=== PATIENT | male | born 1980 | race Two or more races ===

== ENCOUNTER 2018-05-14 17:55 | Inpatient (IN) | payer BC, MEDICAID, OTHER ==
[~2018-05-14] VITALS: Ht 172.7 cm; Wt 108.2 kg
[~2018-05-14 17:55] MED LIST: DOCU-131 PO; HYDR-3240 PO; OXYC-302 PO; PHEN100T90 PO; SULF1TAB24 PO; TAMS-11 PO
[2018-05-14 18:24] LABS: BASOPHILS # (AUTO) 0.03 x10^3/uL (0-0.1); BASOPHILS % (AUTO) 0 % (0-1); EOSINOPHILS # (AUTO) 0.05 x10^3/uL (0-0.4); EOSINOPHILS % (AUTO) 1 % (1-7); LYMPHOCYTES # (AUTO) 1.89 x10^3/uL (1-3.4); LYMPHOCYTES % (AUTO) 21 % (22-44); MD NO; MEAN CORPUSCULAR HEMOGLOBIN 30.1 pg (27.5-34.5); MEAN CORPUSCULAR HGB CONC 33.9 g/dL (33.2-36.2); MEAN CORPUSCULAR VOLUME 88.9 fL (81-97); MEAN PLATELET VOLUME 7.5 fL (7.4-10.4); MONOCYTES # (AUTO) 0.44 x10^3/uL (0.2-0.8); MONOCYTES % (AUTO) 5 % (2-9); NEUTROPHILS # (AUTO) 6.56 x10^3/uL (1.8-6.8); NEUTROPHILS % (AUTO) 73 % (42-75); PLATELET COUNT 337 x10^3/uL (130-400); RED BLOOD COUNT 5.69 x10^6/uL (4.38-5.82); RED CELL DISTRIBUTION WIDTH 13.4 % (9.4-14.8)
[2018-05-14 18:33] LABS: ALBUMIN 3.8 g/dL (3.4-5.0); ANION GAP 5 mmol/L (5-15); CALCIUM 8.9 mg/dL (8.5-10.1); CHLORIDE 109 mmol/L (98-107); CREATININE 1.35 mg/dL (0.7-1.3)
[2018-05-14] MEDS ORDERED: ONDANSETRON 2MG/ML, 2ML IVPush ONE (19:00)
[2018-05-14] MEDS ORDERED: KETOROLAC 30 MG/1 ML IVPush ONE (19:00)
[2018-05-14] MEDS ORDERED: SODIUM CHLORIDE FLUSH 10ML SYR IVF ONE (19:00)
--- NOTE | 2018-05-14 19:00 | NUR ---
ASSUMED CARE OF PT. PT HERE WITH C/O SUPRAPUBIC/GROIN PAIN X 2 DAYS. STATES HX OF KIDNEY STONES AND STATES THIS FEELS SIMILAR. PT DENIES HEMATURIA. DOES STATE PAINFUL URINATION. IV STARTED. POC DISCUSSED. WILL CONTINUE TO MONITOR.
[2018-05-14] MEDS ORDERED: ONDANSETRON 2MG/ML, 2ML ONE (19:03)
[2018-05-14] MEDS ORDERED: MORPHINE SULFATE 4 MG/ML, 1ML ONE ×2 (19:03→19:58)
[2018-05-14] MEDS ORDERED: KETOROLAC 30 MG/1 ML ONE (19:03)
[2018-05-14] MEDS: MORPHINE SULFATE 4 MG/ML, 1ML IVPush PRN ×2 (19:07→20:01)
--- NOTE | 2018-05-14 19:07 | NUR ---
PT MEDICATED PER MAY. RIGHTS VERIFIED PRIOR. 3P'S ADDRESSED. PT TO CT VIA W/C.
--- NOTE | 2018-05-14 20:12 | NUR ---
ANDERSON PLACED PER MAR. STERILE TECHNIQUE USED. ROUGHLY 200ML OF YELLOW SEDAMENT URINE OUT. POC UPDATED WITH PT. PT AGREEABLE. PT ALSO MEDICATED FOR INCREASED PAIN. 5 RIGTHS VERIFEID PRIOR. 3 P'S ADDRESSED.
[2018-05-14 20:35] LABS: CULTURE INDICATED? YES; MICROSCOPIC INDICATED
--- NOTE | 2018-05-14 20:54 | NUR ---
REPORT TO JENNIFER DAVIS.
[2018-05-14] MEDS ORDERED: CEFTRIAXONE PMX 1GM/50ML 50 ML IV ONE (21:00)
[2018-05-14] MEDS ORDERED: CEFTRIAXONE PMX 1GM/50ML 50 ML ONE (21:26)
--- NOTE | 2018-05-14 21:42 | NUR ---
report given to charley lee
[2018-05-14] MEDS ORDERED: BISACODYL 10 MG SUPP PR PRN (22:00)
[2018-05-14] MEDS ORDERED: ONDANSETRON 2MG/ML, 2ML IVPush PRN (22:00)
[2018-05-14] MEDS ORDERED: ACETAMINOPHEN 325 MG TABLET PO PRN (22:00)
[2018-05-14] MEDS: SODIUM CHLORIDE 0.9% 1,000 ML IV SCH (22:45)
[2018-05-14] MEDS: TAMSULOSIN 0.4 MG CAP.ER.24H PO SCH (22:47)
[2018-05-14 23:29] VITALS: BP 105/82
[2018-05-14] MEDS: morphine SULFATE 10 MG/ML, 1ML IVPush PRN (23:56)
[2018-05-15 02:52] VITALS: BP 107/72
[2018-05-15] MEDS: morphine SULFATE 10 MG/ML, 1ML IVPush PRN ×5 (04:46→20:32)
[2018-05-15 05:07] LABS: BASOPHILS # (AUTO) 0.04 x10^3/uL (0-0.1); BASOPHILS % (AUTO) 0 % (0-1); EOSINOPHILS # (AUTO) 0.08 x10^3/uL (0-0.4); EOSINOPHILS % (AUTO) 1 % (1-7); LYMPHOCYTES # (AUTO) 2.35 x10^3/uL (1-3.4); LYMPHOCYTES % (AUTO) 26 % (22-44); MD NO; MEAN CORPUSCULAR HEMOGLOBIN 30.4 pg (27.5-34.5); MEAN CORPUSCULAR HGB CONC 34.5 g/dL (33.2-36.2); MEAN CORPUSCULAR VOLUME 88.1 fL (81-97); MEAN PLATELET VOLUME 7.5 fL (7.4-10.4); MONOCYTES # (AUTO) 0.65 x10^3/uL (0.2-0.8); MONOCYTES % (AUTO) 7 % (2-9); NEUTROPHILS # (AUTO) 5.96 x10^3/uL (1.8-6.8); NEUTROPHILS % (AUTO) 66 % (42-75); PLATELET COUNT 268 x10^3/uL (130-400); RED BLOOD COUNT 5.04 x10^6/uL (4.38-5.82); RED CELL DISTRIBUTION WIDTH 13.3 % (9.4-14.8)
[2018-05-15 05:17] LABS: ALBUMIN 3.1 g/dL (3.4-5.0); ANION GAP 7 mmol/L (5-15); CALCIUM 8.1 mg/dL (8.5-10.1); CHLORIDE 116 mmol/L (98-107)
[2018-05-15 05:20] LABS: ALANINE AMINOTRANSFERASE 32 U/L (12-78); ALKALINE PHOSPHATASE 99 U/L (45-117); BILIRUBIN,TOTAL 0.5 mg/dL (0.2-1.0); CREATININE 1.17 mg/dL (0.7-1.3); TOTAL PROTEIN 6.8 g/dL (6.4-8.2)
[2018-05-15] MEDS: SODIUM CHLORIDE 0.9% 1,000 ML IV SCH ×3 (06:21→22:34)
[2018-05-15 07:34] VITALS: BP 100/64
[2018-05-15] MEDS: CEFTRIAXONE PMX 1GM/50ML 50 ML IV SCH (10:09)
[2018-05-15] MEDS ORDERED: LIDOCAINE-MPF 1%, 5ML ONE (11:31)
[2018-05-15] MEDS ORDERED: FLUMAZENIL 0.1 MG/1 ML, 5ML ONE (11:39)
[2018-05-15] MEDS ORDERED: NALOXONE 1 MG/ML, 2ML ONE (11:39)
[2018-05-15] MEDS ORDERED: MIDAZOLAM 1 MG/ML, 5ML ONE (11:39)
[2018-05-15] MEDS ORDERED: FENTANYL PF 100 MCG/2ML ONE (11:39)
[2018-05-15] MEDS ORDERED: VISIPAQUE 270 MG/ML, 50ML BOTTLE ONE (12:11)
[2018-05-15 12:44] VITALS: BP 110/77
[2018-05-15 19:52] VITALS: BP 127/89
[2018-05-15] MEDS: TAMSULOSIN 0.4 MG CAP.ER.24H PO SCH (20:32)
[2018-05-16 00:34] VITALS: BP 116/73
[2018-05-16] MEDS: morphine SULFATE 10 MG/ML, 1ML IVPush PRN ×2 (03:41→07:37)
[2018-05-16 03:47] VITALS: BP 120/81
[2018-05-16 05:50] LABS: ANION GAP 6 mmol/L (5-15); CALCIUM 7.6 mg/dL (8.5-10.1); CHLORIDE 114 mmol/L (98-107)
[2018-05-16] MEDS: SODIUM CHLORIDE 0.9% 1,000 ML IV SCH ×3 (06:32→22:30)
[2018-05-16 07:48] VITALS: BP 106/78
[2018-05-16 07:56] VITALS: BP 118/76
[2018-05-16 08:50] LABS: BASOPHILS # (AUTO) 0.02 x10^3/uL (0-0.1); BASOPHILS % (AUTO) 0 % (0-1); EOSINOPHILS % (AUTO) 2 % (1-7); LYMPHOCYTES # (AUTO) 1.71 x10^3/uL (1-3.4); LYMPHOCYTES % (AUTO) 27 % (22-44); MD NO; MEAN CORPUSCULAR HEMOGLOBIN 29.7 pg (27.5-34.5); MEAN CORPUSCULAR HGB CONC 33.5 g/dL (33.2-36.2); MEAN CORPUSCULAR VOLUME 88.8 fL (81-97); MEAN PLATELET VOLUME 7.6 fL (7.4-10.4); MONOCYTES # (AUTO) 0.47 x10^3/uL (0.2-0.8); MONOCYTES % (AUTO) 7 % (2-9); NEUTROPHILS # (AUTO) 4.17 x10^3/uL (1.8-6.8); NEUTROPHILS % (AUTO) 64 % (42-75); PLATELET COUNT 233 x10^3/uL (130-400); RED BLOOD COUNT 4.63 x10^6/uL (4.38-5.82); RED CELL DISTRIBUTION WIDTH 13.5 % (9.4-14.8)
[2018-05-16] MEDS: HYDROcodone/APAP 5/325 TABLET PO PRN ×3 (09:15→20:29)
[2018-05-16] MEDS: CEFTRIAXONE PMX 1GM/50ML 50 ML IV SCH (09:15)
[2018-05-16] MEDS ORDERED: KETO10TA PO (12:22)
[2018-05-16] MEDS ORDERED: CEFD300C37 PO ×2 (12:22)
[2018-05-16 12:30] VITALS: BP 115/84
[2018-05-16] MEDS: TAMSULOSIN 0.4 MG CAP.ER.24H PO SCH (20:29)
[2018-05-16 20:48] VITALS: BP 113/82
[2018-05-17 02:19] VITALS: BP 112/83
[2018-05-17] MEDS: HYDROcodone/APAP 5/325 TABLET PO PRN ×3 (02:35→11:41)
[2018-05-17 07:39] VITALS: BP 139/88
[2018-05-17] MEDS ORDERED: CEFD300C37 PO (07:39)
[2018-05-17] MEDS: SODIUM CHLORIDE 0.9% 1,000 ML IV SCH (09:00)
[2018-05-17] MEDS: CEFTRIAXONE PMX 1GM/50ML 50 ML IV SCH (09:12)
[2018-05-17 14:20] VITALS: BP 125/90
== END 2018-05-17 16:00 | disposition home or self-care (01) | DRG 690 ==
LOC: ED 19:41 → 4NOR 21:14 → ED 22:20 → DCLOUNGE 05-17 15:47 → 4WST 05-17 16:26 → DCLOUNGE 05-17 16:26
PROVIDERS: ADMIT Internal Medicine; ATTEND Internal Medicine
PROC: 0T943ZZ Drainage of Left Kidney Pelvis, Percutaneous Approach (ICD-10-PCS; principal; 2018-05-15)
PROC: BT121ZZ Fluoroscopy of Left Kidney using Low Osmolar Contrast (ICD-10-PCS; 2018-05-15)
DX: N13.6 Pyonephrosis (principal); N17.9 Acute kidney failure, unspecified; Z88.0 Allergy status to penicillin; R00.0 Tachycardia, unspecified
CPT/HCPCS: 36415; 50432; 74176; 80048; 80053; 81001; 82040; 85025; 87086; 96374; 96375; 96376; 99156; 99157; C1894; G0378; J0696; J1885; J2250; J2405; J3010; Q9966; C1729; C1769; J2270; J2310; J7030

== ENCOUNTER 2018-05-22 16:26 | Emergency (ER) | payer OTHER ==
[~2018-05-22] VITALS: Ht 177.8 cm; Wt 106.9 kg
[~2018-05-22 16:26] MED LIST changes: +CEFD300C37 PO; +KETO10TA PO
[2018-05-22] MEDS ORDERED: LIDOCAINE 2%,20 ML JEL.PF.APP MM ONE (17:15)
--- NOTE | 2018-05-22 17:47 | NUR ---
ANDERSON CATHETER REPLACED ORDERED FOR URINARY RETENTION. HOWEVER, UPON PLACEMENT VERY LITTLE URINE OUPUT NOTED AND URINE LEAKING AROUND CATHETER. JOHN WINSTON AND DR. STALLWORTH NOTIFIED. CT SCAN ORDERED TO CHECK ANDERSON PLACEMENT.
[2018-05-22 17:59] LABS: BASOPHILS # (AUTO) 0.03 x10^3/uL (0-0.1); BASOPHILS % (AUTO) 0 % (0-1); EOSINOPHILS # (AUTO) 0.09 x10^3/uL (0-0.4); EOSINOPHILS % (AUTO) 1 % (1-7); LYMPHOCYTES # (AUTO) 1.45 x10^3/uL (1-3.4); LYMPHOCYTES % (AUTO) 17 % (22-44); MD NO; MEAN CORPUSCULAR HEMOGLOBIN 30.3 pg (27.5-34.5); MEAN CORPUSCULAR HGB CONC 34.1 g/dL (33.2-36.2); MEAN CORPUSCULAR VOLUME 88.9 fL (81-97); MEAN PLATELET VOLUME 7.3 fL (7.4-10.4); MONOCYTES # (AUTO) 0.59 x10^3/uL (0.2-0.8); MONOCYTES % (AUTO) 7 % (2-9); NEUTROPHILS # (AUTO) 6.41 x10^3/uL (1.8-6.8); NEUTROPHILS % (AUTO) 75 % (42-75); PLATELET COUNT 298 x10^3/uL (130-400); RED BLOOD COUNT 5.11 x10^6/uL (4.38-5.82); RED CELL DISTRIBUTION WIDTH 13.2 % (9.4-14.8)
[2018-05-22 18:05] LABS: ALANINE AMINOTRANSFERASE 47 U/L (12-78); ALBUMIN 3.5 g/dL (3.4-5.0); ANION GAP 3 mmol/L (5-15); CALCIUM 8.6 mg/dL (8.5-10.1); CHLORIDE 111 mmol/L (98-107)
[2018-05-22 18:08] LABS: ALKALINE PHOSPHATASE 90 U/L (45-117); BILIRUBIN,TOTAL 0.4 mg/dL (0.2-1.0); CREATININE 1.11 mg/dL (0.7-1.3); TOTAL PROTEIN 7.6 g/dL (6.4-8.2)
[2018-05-22] MEDS ORDERED: KETOROLAC 30 MG/1 ML ONE (18:43)
[2018-05-22] MEDS ORDERED: OXYcodone/APAP 5/325MG TABLET ONE (18:44)
[2018-05-22] MEDS ORDERED: OXYcodone/APAP 5/325MG TABLET PO ONE (19:00)
[2018-05-22] MEDS ORDERED: KETOROLAC 30 MG/1 ML IM ONE (19:00)
--- NOTE | 2018-05-22 19:06 | NUR ---
RECEIVED BS REPORT FROM TEDDY RN'S TO ASSUME PT. CARE. CONTINUOUS PULSE OX AND B/P MONITORS PLACED. NO URINE OUTPUT NOTED FROM ANDERSON; WILL CONTINUE MONITORING FOR UA. PT. REPORTS PAIN IS ONLY SLIGHTLY BETTER TO PELVIC AREA. FAMILY AT BS FOR SUPPORT. CALL LIGHT IN REACH.
--- NOTE | 2018-05-22 19:21 | NUR ---
PT. CHART UP FOR RECHECK BY ERMD; STILL NO URINE OUTPUT FOR UA.
--- NOTE | 2018-05-22 19:32 | NUR ---
ABOUT 50CC OF BLOODY URINE COLLECTED FROM ANDERSON COLLECTION BAG AND WALKED TO LAB. DR. STALLWORTH AWAITING UROLOGY CONSULT. PT. DENIES NEEDS.
[2018-05-22 19:57] LABS: CULTURE INDICATED? YES; MICROSCOPIC INDICATED
--- NOTE | 2018-05-22 20:31 | NUR ---
PT. RESTING ON GURNEY WITH NADN. CHART UP FOR RECHECK; ERMD STILL AWAITING URO CALL. PT. DENIES NEEDS AT THIS TIME. CALL LIGHT REMAINS IN REACH. FAMILY AT BS. VS UPDATED.
[2018-05-22 20:38] VITALS: BP 123/86
[2018-05-22] MEDS ORDERED: CEFDINIR 300 MG CAPSULE PO STA (20:45)
[2018-05-22] MEDS ORDERED: CEFDINIR 300 MG CAPSULE ONE (20:51)
[2018-05-22] MEDS ORDERED: CEFDINIR 300 MG CAPSULE PO ONE (21:00)
== END 2018-05-22 20:55 | disposition home or self-care (01) ==
LOC: ED 19:52
DX: N20.0 Calculus of kidney (principal); N39.0 Urinary tract infection, site not specified; R31.9 Hematuria, unspecified
CPT/HCPCS: 36415; 51702; 74176; 80053; 81001; 85025; 87086; 96372; 99284; J1885

== ENCOUNTER 2018-06-14 13:00 | Outpatient (CLI) | payer MEDICAID, OTHER | END 2018-06-14 23:59 | disposition home or self-care (01) | LOC: STAR 13:00 | PROVIDERS: ATTEND Urology | DX: Z02.9 Encounter for administrative examinations, unspecified (principal) ==

== ENCOUNTER 2018-06-22 06:59 | Inpatient (IN) | payer MEDICAID, OTHER ==
[2018-06-14 13:51] VITALS: BP 134/90
[~2018-06-22] VITALS: Ht 180.3 cm; Wt 106.8 kg
[2018-06-22] MEDS ORDERED: LACTATED RINGERS 1,000 ML IV SCH (07:31)
[2018-06-22] MEDS ORDERED: FENTANYL PF 250 MCG/5ML ONE ×2 (09:11→10:49)
[2018-06-22] MEDS ORDERED: MIDAZOLAM 1 MG/ML, 2ML ONE (09:11)
[2018-06-22] MEDS ORDERED: OMNIPAQUE 350 MG/ML, 50 ML BOTTLE ONE (09:45)
[2018-06-22] MEDS ORDERED: CIPROFLOXACIN/PMX 400MG/200ML 200 ML ONE (09:49)
[2018-06-22] MEDS ORDERED: CEFTRIAXONE 1,000 MG ONE (09:56)
[2018-06-22] MEDS ORDERED: LEVOFLOXACIN/PMX 500MG/100ML 100 ML ONE (10:01)
[2018-06-22] MEDS ORDERED: PROMETHAZINE 25 MG/ML, 1ML IV PRN (14:00)
[2018-06-22] MEDS ORDERED: MEPERIDINE/PF 25MG/0.5ML IVPush PRN (14:00)
[2018-06-22] MEDS ORDERED: KETOROLAC 30 MG/1 ML IV PRN (14:00)
[2018-06-22] MEDS ORDERED: hydrALAzine 20 MG/ML, 1ML IV PRN (14:00)
[2018-06-22] MEDS ORDERED: FENTANYL PF 100 MCG/2ML IV PRN (14:00)
[2018-06-22] MEDS ORDERED: OXYcodone 5 MG/5 ML ORAL.SOL UDC PO PRN (14:00)
[2018-06-22] MEDS ORDERED: LABETALOL 5MG/ML, 20ML IV PRN (14:00)
[2018-06-22] MEDS ORDERED: ACETAMINOPHEN 325 MG TABLET PO PRN (14:00)
[2018-06-22] MEDS ORDERED: DIAZEPAM 5 MG/ML, 2ML IVPush PRN (14:00)
[2018-06-22] MEDS ORDERED: ALBUTEROL SULFATE 2.5 MG/3 ML NPPB PRN (14:00)
[2018-06-22] MEDS: HYDROmorphone 2 MG/ML, 1ML IVPush PRN ×5 (14:02→14:39)
[2018-06-22] MEDS ORDERED: HYDROmorphone 2 MG/ML, 1ML ONE (14:02)
[2018-06-22] MEDS ORDERED: ACETAMINOPHEN 650 MG/20.3 ML UDC ONE (14:17)
[2018-06-22] MEDS ORDERED: OXYcodone 5 MG/5 ML ORAL.SOL UDC ONE (14:18)
[2018-06-22] MEDS ORDERED: PROPOFOL 10 MG/ML, 20ML ONE (14:45)
[2018-06-22] MEDS ORDERED: METOPROLOL 1 MG/ML, 5ML ONE (14:45)
[2018-06-22] MEDS ORDERED: ROCURONIUM 10MG/ML,5ML ONE (14:45)
[2018-06-22] MEDS ORDERED: ONDANSETRON 2MG/ML, 2ML ONE (14:45)
[2018-06-22] MEDS ORDERED: DEXAMETHASONE 4 MG/ML, 1ML ONE (14:45)
[2018-06-22 15:30] VITALS: BP 113/75
[2018-06-22] MEDS ORDERED: GENTAMICIN IV ONE (16:00)
[2018-06-22] MEDS ORDERED: SODIUM CHLORIDE 0.9% IV ONE (16:00)
[2018-06-22] MEDS ORDERED: OXYcodone/APAP 5/325MG TABLET PO PRN (16:00)
[2018-06-22] MEDS: LACTATED RINGERS 1,000 ML IV SCH ×2 (16:24→23:51)
[2018-06-22] MEDS: ACETAMINOPHEN 500 MG TABLET PO SCH ×2 (16:24→21:50)
[2018-06-22] MEDS: morphine SULFATE 10 MG/ML, 1ML IV PRN (19:10)
[2018-06-22 19:14] VITALS: BP 117/77
[2018-06-22] MEDS: TAMSULOSIN 0.4 MG CAP.ER.24H PO SCH (20:05)
[2018-06-22] MEDS: OXYcodone/APAP 5/325MG TABLET PO PRN ×2 (20:05→23:51)
[2018-06-23 00:53] VITALS: BP 112/69
[2018-06-23] MEDS: morphine SULFATE 10 MG/ML, 1ML IV PRN ×2 (01:02→01:42)
[2018-06-23] MEDS: OXYcodone/APAP 5/325MG TABLET PO PRN ×3 (03:59→21:22)
[2018-06-23] MEDS: ACETAMINOPHEN 500 MG TABLET PO SCH ×4 (04:00→21:22)
[2018-06-23 08:29] LABS: BASOPHILS # (AUTO) 0.01 x10^3/uL (0-0.1); BASOPHILS % (AUTO) 0 % (0-1); EOSINOPHILS % (AUTO) 0 % (1-7); LYMPHOCYTES # (AUTO) 0.56 x10^3/uL (1-3.4); LYMPHOCYTES % (AUTO) 6 % (22-44); MD NO; MEAN CORPUSCULAR HEMOGLOBIN 29.4 pg (27.5-34.5); MEAN CORPUSCULAR HGB CONC 33.9 g/dL (33.2-36.2); MEAN CORPUSCULAR VOLUME 86.9 fL (81-97); MEAN PLATELET VOLUME 6.7 fL (7.4-10.4); MONOCYTES # (AUTO) 0.26 x10^3/uL (0.2-0.8); MONOCYTES % (AUTO) 3 % (2-9); NEUTROPHILS # (AUTO) 8.25 x10^3/uL (1.8-6.8); NEUTROPHILS % (AUTO) 91 % (42-75); PLATELET COUNT 237 x10^3/uL (130-400); RED BLOOD COUNT 4.36 x10^6/uL (4.38-5.82); RED CELL DISTRIBUTION WIDTH 13.4 % (9.4-14.8)
[2018-06-23 08:38] LABS: ANION GAP 5 mmol/L (5-15); CALCIUM 7.9 mg/dL (8.5-10.1); CHLORIDE 110 mmol/L (98-107); CREATININE 1.19 mg/dL (0.7-1.3)
[2018-06-23 08:57] VITALS: BP 108/65
[2018-06-23] MEDS: LEVOFLOXACIN 500 MG TABLET PO SCH (12:03)
[2018-06-23] MEDS: LACTATED RINGERS 1,000 ML IV SCH (12:09)
[2018-06-23 13:12] VITALS: BP 93/54
[2018-06-23] MEDS ORDERED: OPIUM/BELLADONNA SUPP.RECT 16.2-30 MG PR PRN (18:00)
[2018-06-23 19:25] VITALS: BP 130/83
[2018-06-23] MEDS: TAMSULOSIN 0.4 MG CAP.ER.24H PO SCH (21:22)
[2018-06-23 22:35] VITALS: BP 119/69
[2018-06-24 00:22] VITALS: BP 118/73
[2018-06-24] MEDS ORDERED: ACETAMINOPHEN 500 MG TABLET PO ONE (01:00)
[2018-06-24] MEDS ORDERED: CEFTRIAXONE PMX 2GM/50ML 50 ML IV SCH (01:00)
[2018-06-24] MEDS ORDERED: ACETAMINOPHEN 325 MG TABLET PO PRN (01:05)
[2018-06-24 01:33] LABS: BASOPHILS # (AUTO) 0.01 x10^3/uL (0-0.1); BASOPHILS % (AUTO) 0 % (0-1); EOSINOPHILS % (AUTO) 0 % (1-7); LYMPHOCYTES # (AUTO) 0.73 x10^3/uL (1-3.4); LYMPHOCYTES % (AUTO) 11 % (22-44); MD NO; MEAN CORPUSCULAR HEMOGLOBIN 29.9 pg (27.5-34.5); MEAN CORPUSCULAR HGB CONC 34.2 g/dL (33.2-36.2); MEAN CORPUSCULAR VOLUME 87.3 fL (81-97); MONOCYTES # (AUTO) 0.47 x10^3/uL (0.2-0.8); MONOCYTES % (AUTO) 7 % (2-9); NEUTROPHILS # (AUTO) 5.37 x10^3/uL (1.8-6.8); NEUTROPHILS % (AUTO) 82 % (42-75); PLATELET COUNT 201 x10^3/uL (130-400); RED BLOOD COUNT 4.39 x10^6/uL (4.38-5.82); RED CELL DISTRIBUTION WIDTH 13.4 % (9.4-14.8)
[2018-06-24 01:38] LABS: ANION GAP 7 mmol/L (5-15); CALCIUM 7.8 mg/dL (8.5-10.1); CHLORIDE 107 mmol/L (98-107)
[2018-06-24 02:22] VITALS: BP 112/69
[2018-06-24] MEDS: ACETAMINOPHEN 500 MG TABLET PO SCH ×2 (03:00→12:14)
[2018-06-24] MEDS: morphine SULFATE 10 MG/ML, 1ML IV PRN (04:14)
[2018-06-24 06:55] VITALS: BP 121/80
[2018-06-24] MEDS: LEVOFLOXACIN 500 MG TABLET PO SCH (08:22)
[2018-06-24] MEDS: OXYcodone IR 5MG TABLET PO PRN ×3 (08:28→20:17)
[2018-06-24] MEDS: CEPHALEXIN 500 MG CAPSULE PO SCH ×2 (12:13→20:17)
[2018-06-24 13:19] VITALS: BP 118/80
[2018-06-24 18:45] VITALS: BP 118/80
[2018-06-24] MEDS: TAMSULOSIN 0.4 MG CAP.ER.24H PO SCH (20:21)
[2018-06-25] MEDS: OXYcodone IR 5MG TABLET PO PRN ×4 (01:13→20:34)
[2018-06-25 01:20] VITALS: BP 121/84
[2018-06-25] MEDS ORDERED: ACETAMINOPHEN 325 MG TABLET PO PRN (01:50)
[2018-06-25 02:05] LABS: CLOSTRIDIUM DIFFICILE ANTIGEN NEGATIVE; CLOSTRIDIUM DIFFICILE TOXIN NEGATIVE (Negative)
[2018-06-25 06:55] VITALS: BP 130/85
[2018-06-25] MEDS: LEVOFLOXACIN 500 MG TABLET PO SCH (08:04)
[2018-06-25] MEDS: CEPHALEXIN 500 MG CAPSULE PO SCH ×2 (08:04→20:34)
[2018-06-25 12:22] VITALS: BP 117/85
[2018-06-25 18:38] VITALS: BP 134/90
[2018-06-25] MEDS: TAMSULOSIN 0.4 MG CAP.ER.24H PO SCH (20:34)
[2018-06-26 02:02] VITALS: BP 123/87
[2018-06-26] MEDS: OXYcodone IR 5MG TABLET PO PRN ×2 (02:44→08:22)
[2018-06-26] MEDS ORDERED: CEPHALEXIN 250 MG CAPSULE ONE (08:12)
[2018-06-26] MEDS: LEVOFLOXACIN 500 MG TABLET PO SCH (08:22)
[2018-06-26 08:23] VITALS: BP 128/88
[2018-06-26] MEDS ORDERED: CEPHALEXIN 500 MG CAPSULE PO SCH (09:00)
[2018-06-26] MEDS ORDERED: HYDR-3240 PO (10:31)
[2018-06-26] MEDS ORDERED: DOCU-131 PO (10:32)
[2018-06-26] MEDS ORDERED: AMOX1TAB64 PO (10:33)
== END 2018-06-26 11:00 | disposition home or self-care (01) | DRG 661 ==
LOC: OUT 06:59 → 4NOR 15:20 → OUT 15:33 → 4NOR 15:33 → OBSVTOIN 06-25 08:40 → DCLOUNGE 06-26 10:30
PROVIDERS: ADMIT Urology; ATTEND Urology
PROC: 0TC13ZZ Extirpation of Matter from Left Kidney, Percutaneous Approach (ICD-10-PCS; principal; 2018-06-25)
PROC: 0T778DZ Dilation of Left Ureter with Intraluminal Device, Via Natural or Artificial Opening Endoscopic (ICD-10-PCS; 2018-06-25)
PROC: 0TCB8ZZ Extirpation of Matter from Bladder, Via Natural or Artificial Opening Endoscopic (ICD-10-PCS; 2018-06-25)
PROC: 0TP98DZ Removal of Intraluminal Device from Ureter, Via Natural or Artificial Opening Endoscopic (ICD-10-PCS; 2018-06-25)
DX: T83.89XA Other specified complication of genitourinary prosthetic devices, implants and grafts, initial encounter (principal); N21.9 Calculus of lower urinary tract, unspecified; Y73.2 Prosthetic and other implants, materials and accessory gastroenterology and urology devices associated with adverse incidents; Y92.89 Other specified places as the place of occurrence of the external cause; Z88.0 Allergy status to penicillin
CPT/HCPCS: 36415; 71045; 74425; 80048; 82360; 83605; 85025; 87040; 87086; 87324; 88300; G0378; J0696; J0744; J1100; J1170; J1956; J2250; J2405; J2704; J3010; Q9967; C1727; C1769; C2617; C2625; J1580; J2270; J7120